=== PATIENT | male | born 1960 | race Caucasian/White ===

== ENCOUNTER 2019-06-06 18:29 | Emergency (ER) | payer OTHER ==
--- NOTE | 2019-06-06 19:44 | ERPHSYRPT ---
- History of Present Illness Time Seen by Provider: 06/06/19 19:40 Source: patient Exam Limitations: no limitations Patient Subjective Stated Complaint: pt here reddness, swelling and pain to right knee, pt thinks he got bit by an insect and is worried he has a worm in hes knee, he states when he poured peroxide on it something moved and he can feel something move, Triage Nursing Assessment: pt alert, arrived per wc, poor hygiene,resp easy, skin w/d/p. has swelling, reddness to right knee that radiates to thigh, and redness and sweling to inner aspect of right ankle. open draining wound to top of knee, pt also has mulit open sores over body, Physician History: pt has infected right knee with effusion /cellulitis , denies trauma , has multiple bug bites , denies prior MRSA Method of Injury: unknown Occurred: days ago Quality: constant, sharpness, throbbing Severity of Pain-Max: moderate Severity of Pain-Current: moderate Lower Extremities Pain: knee: right Modifying Factors: Improves With: immobilization, movement Associated Symptoms: other (fever) Allergies/Adverse Reactions: No Known Drug Allergies Allergy (Verified 06/06/19 19:22) Hx Tetanus, Diphtheria Vaccination/Date Given: No Hx Influenza Vaccination/Date Given: No Hx Pneumococcal Vaccination/Date Given: No Immunizations Up to Date: Yes - Review of Systems Constitutional: Fever, No Chills Eyes: No Symptoms Ears, Nose, & Throat: No Symptoms Respiratory: No Cough, No Dyspnea Cardiac: No Chest Pain, No Edema, No Syncope Abdominal/Gastrointestinal: No Abdominal Pain, No Nausea, No Vomiting, No Diarrhea Genitourinary Symptoms: No Dysuria Musculoskeletal: Joint Redness, Joint Pain, Joint Swelling, No Back Pain, No Neck Pain Skin: No Rash Neurological: No Dizziness, No Focal Weakness, No Sensory Changes Psychological: No Symptoms Endocrine: No Symptoms All Other Systems: Reviewed and Negative - Past Medical History Pertinent Past Medical History: No Musculoskeletal History: Other (chronic back pain) - Past Surgical History Past Surgical History: Yes Gastrointestinal: Hernia Repair - Social History Smoking Status: Current every day smoker How long have you smoked: years Exposure to second hand smoke: Yes Alcohol Use: Socially Drug Use: marijuana Patient Lives Alone: No Significant Family History: no pertinent family hx - Nursing Vital Signs Nursing Vital Signs: Initial Vital Signs Temperature 97.4 F 06/06/19 19:14 Pulse Rate 82 06/06/19 19:14 Respiratory Rate 18 06/06/19 19:14 Blood Pressure 154/90 06/06/19 19:14 O2 Sat by Pulse Oximetry 94 L 06/06/19 19:14 Pain Scale Pain Intensity 6 - Physical Exam General Appearance: alert Eyes, Ears, Nose, Throat Exam: moist mucous membranes Neck Exam: non-tender, supple Cardiovascular/Respiratory Exam: chest non-tender, normal breath sounds, regular rate/rhythm, no respiratory distress Gastrointestinal/Abdominal Exam: non-tender, guarding Back Exam: normal inspection, No vertebral tenderness Hips Exam: bilateral: non-tender, normal inspection, normal range of motion, no evidence of injury Knees Exam: right knee: joint effusion, pain, soft tissue tenderness, swelling, left knee: non-tender, normal inspection, normal range of motion, no evidence of injury Ankle Exam: bilateral ankle: non-tender, normal inspection, normal range of motion, no evidence of injury Foot Exam: bilateral foot: non-tender, normal inspection, normal range of motion , no evidence of injury DTR - Lower Extremities Exam: knee (R): 2+, knee (L): 2+, ankle (R): 2+, ankle ( L): 2+ Neuro/Tendon Exam: normal sensation, normal motor functions Mental Status Exam: alert, oriented x 3, cooperative Skin Exam: warm, dry, other (erythematous right knee) SpO2 Interpretation: normal SpO2: 94 - Course Nursing assessment & vital signs reviewed: Yes - CT Exams Right Lower Extremity CT Interpretation: Tele-radiologist Report, Other (flidid in thigh and calf and preknee) Ordered Tests: Active Orders 24 hr Category Date Time Status IV Insertion STAT Care 06/06/19 19:45 Active IV Insertion-2nd Peripheral STAT Care 06/06/19 21:25 Active LOWER EXTREMITY WO CONTRAST [CT] Stat Exams 06/06/19 19:44 Taken CBC W DIFF Stat Lab 06/06/19 20:08 Completed CMP Stat Lab 06/06/19 20:08 Completed Lactic Acid Stat Lab 06/06/19 20:05 Completed SED RATE [Erythrocyte Sedimentation Rate] Stat Lab 06/06/19 20:08 Completed UA W/RFX UR CULTURE Stat Lab 06/06/19 21:24 Completed Medication Summary Generic Name Dose Route Start Last Admin Trade Name Freq PRN Reason Stop Dose Admin Ceftriaxone Sodium mg 06/06/19 19:45 Rocephin 1000 Mg Inj IM 06/06/19 19:46 STAT STA Sodium Chloride 1,000 mls @ 999 mls/hr 06/06/19 21:30 06/06/19 22:36 Sodium Chloride 0.9% 1000 Ml IV 06/07/19 00:30 999 mls/hr .Q1H1M MAXX Administration Discontinued Medications Generic Name Dose Route Start Last Admin Trade Name Daren PRN Reason Stop Dose Admin Diphtheria/Tetanus/Acell Pertussis 0.5 ml 06/06/19 19:45 06/06/19 20:36 Adacel Vial IM 06/06/19 19:46 0.5 ml .ONCE ONE Administration Diphtheria/Tetanus/Acell Pertussis Confirm 06/06/19 20:19 Adacel Vial Administered 06/06/19 20:20 Dose 0.5 ml IM .STK-MED ONE Sodium Chloride 1,000 mls @ 999 mls/hr 06/06/19 19:45 06/06/19 21:29 Sodium Chloride 0.9% 1000 Ml IV 06/06/19 20:45 Infused .Q1H1M STA Infusion Vancomycin HCl 1 gm in 250 mls @ 167 mls/hr 06/06/19 19:48 06/06/19 20:27 Vancomycin 1gm/ Ns 250ml IV 06/06/19 21:17 167 mls/hr STAT ONE Administration Sodium Chloride Confirm 06/06/19 20:18 Sodium Chloride 0.9% 1000 Ml Administered 06/06/19 20:19 Dose 1,000 mls @ ud .ROUTE .STK-MED ONE Vancomycin HCl Confirm 06/06/19 20:19 Vancomycin 1gm/ Ns 250ml Administered 06/06/19 20:20 Dose 250 mls @ ud IV .STK-MED ONE Ceftriaxone Sodium/Dextrose 1 g in 50 mls @ 100 mls/hr 06/06/19 21:28 22:04 Rocephin 1 Gm-D5w 50 Ml Bag IV 06/06/19 21:57 Infused STAT STA Infusion Ceftriaxone Sodium/Dextrose Confirm 06/06/19 21:27 Rocephin 1 Gm-D5w 50 Ml Bag Administered 06/06/19 21:28 Dose 1 g in 50 mls @ ud IV .STK-MED ONE Ketorolac Tromethamine 30 mg 06/06/19 19:45 06/06/19 20:28 Toradol 30 Mg Injection IV 06/06/19 19:46 30 mg STAT ONE Administration Ketorolac Tromethamine Confirm 06/06/19 20:18 Toradol 30 Mg Injection Administered 06/06/19 20:19 Dose 30 mg .ROUTE .STK-MED ONE Lab/Rad Data: Laboratory Result Diagrams 06/06/19 20:08 06/06/19 20:08 Laboratory Results 06/06/19 06/06/19 06/06/19 Range/Units 21:24 20:08 20:08 WBC 14.8 H (4.0-10.5) K/mm3 RBC 4.76 (4.1-5.6) M/mm3 Hgb 15.5 (12.5-18.0) gm/dl Hct 45.5 (42-50) % MCV 95.6 (78-100) fl MCH 32.6 H (26-32) pg MCHC 34.1 (32-36) g/dl RDW 12.4 (11.5-14.0) % Plt Count 190 (150-450) K/mm3 MPV 10.8 H (6-9.5) fl Gran % 85.2 H (36.0-66.0) % Eos # (Auto) 0.01 (0-0.5) Absolute Lymphs (auto) 0.80 L (1.0-4.6) Absolute Monos (auto) 1.35 H (0.0-1.3) Lymphocytes % 5.4 L (24.0-44.0) % Monocytes % 9.2 (0.0-12.0) % Eosinophils % 0.1 (0.00-5.0) % Basophils % 0.1 (0.0-0.4) % Absolute Granulocytes 12.58 H (1.4-6.9) Basophils # 0.01 (0-0.4) ESR (0-15) mm/hr Sodium 132 L (137-145) mmol/L Potassium 4.2 (3.5-5.1) mmol/L Chloride 94 L (98-107) mmol/L Carbon Dioxide 30 (22-30) mmol/L Anion Gap 12.4 (5-15) MEQ/L BUN 11 (9-20) mg/dL Creatinine 0.73 (0.66-1.25) mg/dL Estimated GFR > 60.0 ML/MIN Glucose 144 H (74-106) mg/dL Lactic Acid (0.4-2.0) Calcium 9.3 (8.4-10.2) mg/dL Total Bilirubin 0.70 (0.2-1.3) mg/dL AST 35 (17-59) U/L ALT 33 (0-50) U/L Alkaline Phosphatase 71 (38-126) U/L Serum Total Protein 7.4 (6.3-8.2) g/dL Albumin 3.9 (3.5-5.0) g/dL Urine Color YELLOW (YELLOW) Urine Appearance CLEAR (CLEAR) Urine pH 7.0 (5-6) Ur Specific [place] 1.014 (1.005-1.025) Urine Protein NEGATIVE (Negative) Urine Ketones TRACE (NEGATIVE) Urine Blood NEGATIVE (0-5) David/ul Urine Nitrite NEGATIVE (NEGATIVE) Urine Bilirubin NEGATIVE (NEGATIVE) Urine Urobilinogen NEGATIVE (0-1) mg/dL Ur Leukocyte Esterase NEGATIVE (NEGATIVE) Urine WBC (Auto) NONE (0-5) /HPF Urine RBC (Auto) NONE (0-2) /HPF U Epithel Cells (Auto) NONE (FEW) /HPF Urine Bacteria (Auto) NONE SEEN (NEGATIVE) /HPF Urine Mucus (Auto) SLIGHT (NEGATIVE) /HPF Urine Culture Reflexed NO (NO) Urine Glucose NEGATIVE (NEGATIVE) mg/dL 06/06/19 06/06/19 Range/Units 20:08 20:05 WBC (4.0-10.5) K/mm3 RBC (4.1-5.6) M/mm3 Hgb (12.5-18.0) gm/dl Hct (42-50) % MCV (78-100) fl MCH (26-32) pg MCHC (32-36) g/dl RDW (11.5-14.0) % Plt Count (150-450) K/mm3 MPV (6-9.5) fl Gran % (36.0-66.0) % Eos # (Auto) (0-0.5) Absolute Lymphs (auto) (1.0-4.6) Absolute Monos (auto) (0.0-1.3) Lymphocytes % (24.0-44.0) % Monocytes % (0.0-12.0) % Eosinophils % (0.00-5.0) % Basophils % (0.0-0.4) % Absolute Granulocytes (1.4-6.9) Basophils # (0-0.4) ESR 6 (0-15) mm/hr Sodium (137-145) mmol/L Potassium (3.5-5.1) mmol/L Chloride (98-107) mmol/L Carbon Dioxide (22-30) mmol/L Anion Gap (5-15) MEQ/L BUN (9-20) mg/dL Creatinine (0.66-1.25) mg/dL Estimated GFR ML/MIN Glucose (74-106) mg/dL Lactic Acid 1.6 (0.4-2.0) Calcium (8.4-10.2) mg/dL Total Bilirubin (0.2-1.3) mg/dL AST (17-59) U/L ALT (0-50) U/L Alkaline Phosphatase (38-126) U/L Serum Total Protein (6.3-8.2) g/dL Albumin (3.5-5.0) g/dL Urine Color (YELLOW) Urine Appearance (CLEAR) Urine pH (5-6) Ur Specific [place] (1.005-1.025) Urine Protein (Negative) Urine Ketones (NEGATIVE) Urine Blood (0-5) David/ul Urine Nitrite (NEGATIVE) Urine Bilirubin (NEGATIVE) Urine Urobilinogen (0-1) mg/dL Ur Leukocyte Esterase (NEGATIVE) Urine WBC (Auto) (0-5) /HPF Urine RBC (Auto) (0-2) /HPF U Epithel Cells (Auto) (FEW) /HPF Urine Bacteria (Auto) (NEGATIVE) /HPF Urine Mucus (Auto) (NEGATIVE) /HPF Urine Culture Reflexed (NO) Urine Glucose (NEGATIVE) mg/dL - Progress Progress: improved, re-examined Progress Note: 06/06/19 22:31 we had to treat pt for decreased BP and draw cultures as possible sepsis , and this delayed CT . 06/07/19 00:12 ct scan shows fluid in thigh - will consult for possible emergent ortho transfer; 06/07/19 00:32 discussed with transfer center at [facility] and they will accept in ER to ER 06/07/19 00:41 required crit care for boluses to restore BP; Discussed with : Other ([facility] transfer center) Counseled pt/family regarding: lab results, diagnosis, need for follow-up, rad results - Departure Departure Disposition: Transfer Clinical Impression: soft tissue infection right knee/leg; , Sepsis Condition: Good Critical Care Time: Yes Critical Care Time(excluding separately billable procedures): Critical 30-74 mins Referrals: ROSIBEL JULIAN [Primary Care Provider] -
[2019-06-06] MEDS ORDERED: Rocephin 1000 MG INJ IM STA (19:45)
[2019-06-06] MEDS ORDERED: Sodium Chloride 0.9% 1000 ML 1,000 ML IV STA (19:45)
[2019-06-06] MEDS ORDERED: TORAdol 30 mg Injection IV ONE (19:45)
[2019-06-06] MEDS ORDERED: Adacel Vial IM ONE ×2 (19:45→20:19)
[2019-06-06] MEDS ORDERED: Vancomycin 1GM/ Ns 250ML*** 1 GM/250 ML IVPB IV ONE (19:48)
[2019-06-06 20:11] LABS: BASOPHIL % 0.1 % (0.0-0.4); Basophil (Absolute #) 0.01 (0-0.4); Eosinophil % 0.1 % (0.00-5.0); Eosinophil (Absolute #) 0.01 (0-0.5); Granulocyte Absolute (ANC) 12.58 (1.4-6.9); Granulocytes % 85.2 % (36.0-66.0); Hematocrit 45.5 % (42-50); Hemoglobin 15.5 gm/dl (12.5-18.0); Lymphocytes % 5.4 % (24.0-44.0); Mean Cell Volume 95.6 fl (78-100); Mean Corpuscular Hemoglobin 32.6 pg (26-32); Mean Corpuscular Hgb Concent. 34.1 g/dl (32-36); Mean Platelet Volume 10.8 fl (6-9.5); Monocyte (Absolute #) 1.35 (0.0-1.3); Monocytes % 9.2 % (0.0-12.0); Platelet Count 190 K/mm3 (150-450); Red Blood Count 4.76 M/mm3 (4.1-5.6); Red Cell Distribution Width 12.4 % (11.5-14.0); White Blood Count 14.8 K/mm3 (4.0-10.5)
[2019-06-06] MEDS ORDERED: Sodium Chloride 0.9% 1000 ML 1,000 ML ONE ×2 (20:18→21:27)
[2019-06-06] MEDS ORDERED: TORAdol 30 mg Injection ONE (20:18)
[2019-06-06] MEDS ORDERED: Vancomycin 1GM/ Ns 250ML*** 250 ML IV ONE (20:19)
[2019-06-06 20:22] LABS: ALBUMIN 3.9 g/dL (3.5-5.0); ALKALINE PHOSPHATASE 71 U/L (38-126); ANION GAP 12.4 MEQ/L (5-15); BLOOD UREA NITROGEN 11 mg/dL (9-20); CHLORIDE 94 mmol/L (98-107); Calcium 9.3 mg/dL (8.4-10.2); Carbon Dioxide 30 mmol/L (22-30); Creatinine 1 0.73 mg/dL (0.66-1.25); Glucose 144 mg/dL (74-106); Potassium 4.2 mmol/L (3.5-5.1); SGOT/AST 35 U/L (17-59); SGPT/ALT 33 U/L (0-50); SODIUM 132 mmol/L (137-145); Total Protein 7.4 g/dL (6.3-8.2)
[2019-06-06] MEDS ORDERED: ROCEPHIN 1 Gm-D5w 50 ml Bag** 1 G/50 ML IVPB IV ONE (21:27)
[2019-06-06] MEDS ORDERED: ROCEPHIN 1 Gm-D5w 50 ml Bag** 1 G/50 ML IVPB IV STA (21:28)
[2019-06-06] MEDS: Sodium Chloride 0.9% 1000 ML 1,000 ML IV SCH ×3 (21:33→22:36)
[2019-06-06 21:38] LABS: Appearance CLEAR (CLEAR); Bilirubin NEGATIVE (NEGATIVE); Blood NEGATIVE Ery/ul (0-5); Glucose NEGATIVE (NEGATIVE); Ketones TRACE (NEGATIVE); Leukocyte Esterase NEGATIVE (NEGATIVE); Mucus SLIGHT /HPF (NEGATIVE); Nitrite NEGATIVE (NEGATIVE); Protein,Urine Dip NEGATIVE (Negative); Specific Gravity 1.014 (1.005-1.025); Urobilinogen NEGATIVE mg/dL (0-1)
[2019-06-06 21:58] LABS: Bacteria NONE SEEN /HPF (NEGATIVE)
[2019-06-06] MEDS ORDERED: Sodium Chloride 0.9% 1000 ML 2,000 ML ONE (22:09)
[2019-06-07] MEDS ORDERED: LEVOPHED 4 MG/4 ML 4,000 MCG in Dextrose 5%/Water IV Soln. 500 ML 500 ML IV PRN (00:51)
[2019-06-07 01:16] VITALS: BP 111/71; PULSE 67; O2SAT 100
--- NOTE | 2019-06-07 07:04 | XRAY ---
Indication: Right knee erythema and swelling with drainage. Multiple contiguous axial images obtained through the right knee. Sagittal and coronal reformatted images obtained Comparison: None Axial images negative for acute fracture, suspicious bony lesions, or osseous destructive process. Mild/moderate tricompartmental degenerative changes with small effusion. Diffuse superficial and deep soft tissue swelling/edema. There is a 6 x 8.5 x 3 cm fluid collection over the anterior medial distal thigh and proximal knee possibly contiguous with the medial quadriceps muscle. Lack of IV contrast precludes further characterization. No air bubbles. Remaining visualized noncontrasted soft tissue unremarkable. Impression: 1. Negative acute fracture/dislocation. 2. Tricompartmental degenerative changes and small effusion. 3. Diffuse superficial and deep soft tissue swelling/edema with nonspecific fluid collection as detailed. Comment: Preliminary interpretation was made by [facility]. No critical discrepancy CTDI 74.34
== END 2019-06-07 01:35 | disposition short-term general hospital (02) ==
LOC: ED 18:29
DX: M79.89 Other specified soft tissue disorders (principal); L08.9 Local infection of the skin and subcutaneous tissue, unspecified; M00.861 Arthritis due to other bacteria, right knee
CPT/HCPCS: 36000; 36415; 73700; 80053; 81001; 83605; 85025; 85652; 87070; 87077; 87186; 90471; 90715; 96360; 96361; 96365; 96367; 96374; 99285; 99291; J0696; J1885; J3370